=== PATIENT | female | born 1975 | race Caucasian/White ===

== ENCOUNTER → 2017-05-28 | Outpatient (CLI) | payer MEDICAID ==
[~2017-05-28] MED LIST: CHOLESTEROL MED PO; DICLOFENAC 50MG50 MG PO; HYDROCHLOROTHIA25 M1 PO; IBU-8800 MG PO; LISINOPRIL/HCTZ1 TA3 PO; LORTAB 5/500 501 TAB PO; PERCOCET 5/3251 EACH PO; PRINIVIL40 MG PO; ROBAXIN-750750 MG PO; ULTRAM50 MG PO; VOLTAREN75 MG PO; XANAX 0.5MG TA0.5 MG PO
[2017-05-28 18:14] LABS: HEMOGLOBIN 16.4 g/dL (12.2-16.2); LYMPH # 2.9 K/mm3 (0.7-4.5); LYMPH % 31.1 % (10-50.0)
[2017-05-28 18:38] LABS: BUN 17 mg/dL (7-18)
[2017-05-28 18:54] LABS: GFR (ESTIMATED) 60 ML/MIN (59-)
[2017-05-30 18:35] LABS: HBsAg Screen Negative (Negative); Hep A Ab, IgM Negative (Negative); Hep B Core Ab, IgM Negative (Negative); Hep C Virus Ab >11.0 (0.0-0.9)
== END ==
LOC: LAB 16:50
PROVIDERS: Emergency Medicine
DX: R53.83 Other fatigue (principal)